=== PATIENT | male | born 1955 ===

== ENCOUNTER 2022-11-13 09:26 | Emergency (ER) | payer MEDICARE, OTHER ==
[2022-11-13 09:30] VITALS: BP 201/94
--- NOTE | 2022-11-13 09:57 | ED GU-Male ---
General Chief Complaint: - Reproductive Stated Complaint: NOT URINATING Source: patient History of Present Illness Date Seen by Provider: Nov 13, 2022 Time Seen by Provider: 09:29 Initial Comments 67-year-old male presenting with complaints of difficulty urinating since last night. He states that he does have a history of prostatectomy for prostate can cer and just finished radiation treatments. He has increased pressure this morning had drink more water trying to help make him pee. However since he was just building up pressure and still unable to urinate he came to the emergency department. He states that just prior to coming in he had been straining trying to get urine out. He denies having fever, chills, nausea, vomiting, headache, abdominal pain. 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 He lives in [place]. He does have family and his family owns a business here in [place] so he was up here for that. Timing/Duration: yesterday (started last night) Severity/Quality: moderate, other (pressure) Location: suprapubic Radiation: suprapubic Activities at Onset: none Prior Genitourinary Problems: similar symptoms Modifying Factors: Worsens With Urinating (unable to urinate since last night and then it was only a dribble) Associated Symptoms: No diaphoresis, No dysuria, No fever/chills, No loss of bladder control, No lower back pain, No mass, No nausea/vomiting, No nocturia, No polyuria, No swelling, No syncope Allergies and Home Medications Allergies Coded Allergies: No Known Drug Allergies (Unverified , 11/13/22) Patient Home Medication List Home Medication List Reviewed: Yes Review of Systems Review of Systems Constitutional: No chills, No fever EENTM: no symptoms reported Respiratory: no symptoms reported Cardiovascular: no symptoms reported Gastrointestinal: no symptoms reported Genitourinary: see HPI Skin: no symptoms reported Psychiatric/Neurological: No Symptoms Reported Past Vmmzytm-[id number]-Qrykih Hx Past Medical History Surgery/Hospitalization HX: Prostate cancer, Hypertension, prostatectomy, Radiation treatments for prostate Surgeries: Yes Physical Exam Vital Signs Vital Signs - First Documented 11/13/22 09:30 Temp 36.6 Pulse 76 Resp 16 B/P (MAP) 201/94 (129) Pulse Ox 97 Capillary Refill : Height, Weight, BMI Height: '" Weight: lbs. oz. kg; BMI Method: General Appearance: WD/WN, no apparent distress Cardiovascular: normal peripheral pulses, regular rate, rhythm Respiratory: chest non-tender, lungs clear, normal breath sounds Gastrointestinal: normal bowel sounds, soft, no pulsatile mass, tenderness (mild tenderness to palpation over his suprapubic area) Rectal: deferred Male: normal genitalia Neurologic/Psychiatric: alert Skin: normal color, warm/dry Progress/Results/Core Measures Suspected Sepsis SIRS Temperature: Pulse: Respiratory Rate: Blood Pressure / Mean: Results/Orders Lab Results Laboratory Tests Test 11/13/22 10:18 Range/Units Urine Color YELLOW Urine Clarity CLEAR Urine pH 5.5 5-9 Urine Specific [place] >=1.030 1.016-1.022 Urine Protein NEGATIVE NEGATIVE Urine Glucose (UA) NEGATIVE NEGATIVE Urine Ketones NEGATIVE NEGATIVE Urine Nitrite NEGATIVE NEGATIVE Urine Bilirubin NEGATIVE NEGATIVE Urine Urobilinogen 0.2 < = 1.0 MG/DL Urine Leukocyte Esterase NEGATIVE NEGATIVE Urine RBC (Auto) 1+ H NEGATIVE Urine RBC 10-25 H /HPF Urine WBC RARE /HPF Urine Squamous Epithelial Cells RARE /HPF Urine Crystals NONE /LPF Urine Bacteria NEGATIVE /HPF Urine Casts NONE /LPF Urine Mucus NEGATIVE /LPF Urine Culture Indicated NO My Orders Orders - VENKATA PEARSON MD Ua Culture If Indicated (11/13/22 09:31) Bladder Scan (11/13/22 09:31) Centeno Cath (11/13/22 09:46) Vital Signs/I&O 11/13/22 09:30 Temp 36.6 Pulse 76 Resp 16 B/P (MAP) 201/94 (129) Pulse Ox 97 Capillary Refill : Progress Note #1: Progress Note Potential diagnosis of urinary retention, UTI, bladder outlet obstruction. Obtain bladder scan to look for signs of retention. Patient is unable to urinate prior to obtaining bladder scan. His bladder scan showed greater than 400 mL of urine present. Attempted to place a Centeno catheter with 16 Portuguese catheter and unable to have it passed. Attempted with a 18 and 16 Portuguese coud but still unable to get catheter to pass into the bladder. I advised patient that I would call the Urologist out of [place], Dr. Rodríguez, as he was the closest Urologist to check with about his retention and not being able to pass a catheter. In the meantime, the patient states he was going to reach out to his usual Urology doctors in [place]. He states he thinks he started to see Dr. Rodríguez a few years ago when his issues started but due to insurance and living in [place] he did not continue with Dr. Rodríguez. Progress Note #2: Time: 10:13 Progress Note I called Dr. Rodríguez's office in [place] and was informed he was in [place] today. They gave me a number and I reached out to him at the clinic in [place]. I spoke with his nurse Nelli and she spoke with Dr. Rodríguez about the patient having history of prostatectomy in the recent radiation for prostate cancer and now having retention with increasing pain. He had dribbled some urine last night but unable to pass any urine today. We were unable to place a catheter despite attempting with a 16 Portuguese Centeno, 16 Portuguese coud and an 18 Portuguese c oud Centeno catheter. His bladder scan had shown greater than 400 mL of urine in multiple windows. They advised that if he could go to [place] and be seen in the ED then Dr. Rodríguez could see him this afternoon when they finish in [place]. I went back to tell the patient this information and he was suddenly having some leaking of urine and was able to get approximately 150 mL of yellow colored urine into a urinal. He stated that that has relieved a lot of pressure on his bladder. He was able to reach his urologist in [place] and they had advised him that they personally did not place catheters but if the patient came down to [place] they could be seen in the emergency department and the staff might be able to place a catheter and if not contact the urologist on-call. He also could check with his oncology urologist and see if they were available to see him in the clinic or how they would want to proceed. I told the patient that we would send the urine specimen over for testing to make sure there was not any signs of infection. I also gave him an adult brief in case he had any more leaking or dribbling from his bladder and penis. I advised him I would come back to the room once we have the test results of the urinalysis. Progress Note #3: Progress Note I had gone to see a new patient had just arrived in the emergency department after sending the urine specimen to the lab. When I finished seeing the new patient I was advised that room 6 had left without talking to anyone and letting them know that he was leaving. He had not been a patient at [facility] previously so we did not have contact number or full information on him. Dr. Marcos Aiken's nurse called to the ED to find out the patient's NPO status and we told her that the patient had eloped from the ED without telling staff he was leaving. He likely would not be coming to [place] as his family had told him to go to [place] to be seen instead of going to [place]. His urinalysis did come back showing increased specific gravity >1.030 and some Red blood cells consistent with the repeated attempts at placing a catheter. He did not have signs of infection, such as nitrates, leukocyte esterase or bacteria. Departure Impression Primary Impression: Acute urinary retention Additional Impressions: Difficulty urinating Eloped from emergency department Disposition: 07 AGAINST MEDICAL ADVICE Condition: Against Medical Advice Departure-Patient Inst. Referrals: NO,LOCAL PHYSICIAN (PCP/Family) Primary Care Physician Patient Instructions: Urinary Retention (DC) VENKATA PEARSON MD Nov 13, 2022 09:57
[2022-11-13 10:28] LABS: BILIRUBIN,URINE NEGATIVE (NEGATIVE); CLARITY,URINE CLEAR; COLOR,URINE YELLOW; GLUCOSE, URINE (UA) NEGATIVE (NEGATIVE); KETONES,URINE NEGATIVE (NEGATIVE); LEUKOCYTE ESTERASE ,URINE NEGATIVE (NEGATIVE); NITRITE,URINE NEGATIVE (NEGATIVE); PH,URINE 5.5 (5-9); PROTEIN,URINE NEGATIVE (NEGATIVE)
[2022-11-13 10:50] LABS: BACTERIA,URINE NEGATIVE /HPF; SQUAMOUS EPITHELIAL CELL,UR RARE /HPF; WBC,URINE RARE /HPF
== END 2022-11-13 10:36 | disposition left against medical advice (07) ==
LOC: ER FS 09:28
DX: R33.9 Retention of urine, unspecified (principal); R39.198 Other difficulties with micturition; Z90.79 Acquired absence of other genital organ(s)
CPT/HCPCS: 51702; 81000